=== PATIENT | female | born 1935 | race Hispanic/Latino ===

== ENCOUNTER 2020-02-19 14:23 | Emergency (ER) | payer MEDICARE ==
--- NOTE | 2020-02-19 15:08 | Emergency Department Report ---
Blank Doc - Documentation Documentation: 84-year-old female that presents with multiple pains with headache s/y syncopal episode. This initial assessment/diagnostic orders/clinical plan/treatment(s) is/are subject to change based on patient's health status, clinical progression and re- assessment by fellow clinical providers in the ED. Further treatment and workup at subsequent clinical providers discretion. Patient/guardians urged not to elope from the ED as their condition may be serious if not clinically assessed and managed. Initial orders include: 1- Patient sent to MAIN ED for further evaluation and treatment 2- labs 3- CT scan 4- cervical collar
--- NOTE | 2020-02-19 15:47 | XRay Report ---
CHEST 2 VIEWS INDICATION / CLINICAL INFORMATION: Chest Pain. FINDINGS: SUPPORT DEVICES: None. HEART / MEDIASTINUM: No significant abnormality. LUNGS / PLEURA: No significant pulmonary or pleural abnormality. No pneumothorax. Mild emphysema. ADDITIONAL FINDINGS: No significant additional findings. IMPRESSION: 1. No acute findings. Signer Name: Richard Pal MD Signed: 02/19/2020 3:43 PM Workstation Name: [id number]
--- NOTE | 2020-02-19 16:30 | Cat Scan Report ---
NONENHANCED CT SCAN OF THE HEAD: INDICATION / CLINICAL INFORMATION: 84 years Female; syncope. TECHNIQUE: Routine CT head without contrast. All CT scans at this location are performed using CT dos e reduction for ALARA by means of automated exposure control. COMPARISON: CT scan of the head from 05/22/2018 FINDINGS: BRAIN / INTRACRANIAL CONTENTS: No acute hemorrhage, mass effect, midline shift, hydrocephalus, or ac cooper, large territorial infarct. No chronic infarct or focal atrophy. Periventricular and deep hemisph ernst confluent white matter low attenuation due to chronic small vessel disease CRANIOCERVICAL JUNCTION: No significant abnormality. ORBITS: No significant abnormality of visualized orbits. SINUSES / MASTOIDS: No significant abnormality of the visualized paranasal sinuses or mastoid air lesa ls. ADDITIONAL FINDINGS: None. IMPRESSION: No focal acute parenchymal lesion CT findings remain unchanged since 05/22/2018 Signer Name: Chuy Sun MD Signed: 02/19/2020 4:25 PM Workstation Name: [id number]
[2020-02-19 16:49] LABS: Basophils % (Auto) 0.3 % (0.0-1.8); Eosinophils % (Auto) 0.7 % (0.0-4.3); Hematocrit 38.4 % (30.3-42.9); Hemoglobin 12.8 gm/dl (10.1-14.3); Lymphocytes # (Auto) 1.2 K/mm3 (1.2-5.4); Lymphocytes % (Auto) 22.1 % (13.4-35.0); Mean Corpuscular HGB Conc 33 % (30-34); Mean Corpuscular Volume 99 fl (79-97); Monocytes # (Auto) 0.3 K/mm3 (0.0-0.8); Monocytes % (Auto) 4.8 % (0.0-7.3); Platelet Count 118 K/mm3 (140-440); Red Blood Count 3.88 M/mm3 (3.65-5.03); Red Cell Distribution Width 14.4 % (13.2-15.2)
[2020-02-19 16:59] LABS: INR 0.96 (0.87-1.13); Partial Thromboplastin Time 26.3 Sec. (24.2-36.6)
[2020-02-19 17:09] LABS: Alanine Aminotransferase 12 units/L (7-56); Albumin 4.1 g/dL (3.9-5); BUN/Creatinine Ratio 20; Blood Urea Nitrogen 16 mg/dL (7-17); Calcium 9.9 mg/dL (8.4-10.2); Hemolysis Index 11
--- NOTE | 2020-02-19 17:43 | Cat Scan Report ---
CT cervical spine wo con INDICATION / CLINICAL INFORMATION: 84 years Female; syncope. TECHNIQUE: Axial CT images of the cervical spine were obtained. Sagittal and coronal reformatted images were pr oduced. All CT scans at this location are performed using CT dose reduction for ALARA by means of aut omated exposure control. COMPARISON: The study is compared to the previous CT of 05/22/2018. FINDINGS: POST-SURGICAL CHANGES: None. ALIGNMENT: There is exaggeration of the cervical lordosis with slight anterolisthesis at C6-7 which a ppears to be on a degenerative basis at. VERTEBRAE: There is diffuse osteopenia. However, there is no definitive CT evidence of acute fracture involving the cervical spine. There are continued a multilevel degenerative the disc and endplate ch anges.. INTRAVERTEBRAL DISCS: The left facet and uncovertebral joint hypertrophy at C3-4 result in mild left neural foraminal narrowing. There is marked left foraminal narrowing at C4-5 with encroachment on the left lateral recess at. The spondylosis at C5-6 appears to efface the ventral subarachnoid space at. There appears be moderat e to left neural foraminal narrowing at. There is milder spondylosis at C6-7. There appears be mild t o moderate left foraminal narrowing. PARASPINAL SOFT TISSUES: No prevertebral soft tissue fluid collections are identified. There is a per sistent nodular, heterogeneous lesion along the posterior right lobe of the thyroid gland which appea rs unchanged and remains nonspecific. ADDITIONAL FINDINGS: None. IMPRESSION: 1. There is no definitive CT evidence of acute fracture involving the cervical spine. 2. There are continued multilevel degenerative changes as detailed above. Signer Name: Jesus Da Silva MD Signed: 02/19/2020 5:38 PM Workstation Name: [id number]
[2020-02-19 22:15] VITALS: BP 134/108
== END 2020-02-19 18:00 | disposition left against medical advice (07) ==
LOC: ED 14:23
DX: R51.9 Headache, unspecified (principal); R55 Syncope and collapse; Z53.21 Procedure and treatment not carried out due to patient leaving prior to being seen by health care provider
CPT/HCPCS: 36415; 70450; 71046; 72125; 80053; 84484; 85025; 85610; 85730; 86850; 86900; 86901; 93005

== ENCOUNTER 2021-08-13 08:00 | Inpatient (IN) | payer MEDICARE, OTHER ==
[2021-08-13] MEDS ORDERED: fentaNYL 100 MCG/2 ML INJ IV ONE (08:20)
[2021-08-13] MEDS ORDERED: ONDANSETRON 4 MG/2 ML INJ IV ONE ×2 (08:21→10:44)
--- NOTE | 2021-08-13 08:45 | Emergency Department Report ---
ED Fall HPI - General Chief Complaint: Fall Stated Complaint: RIGHT HIP PAIN S/P FALL Time Seen by Provider: 08/13/21 08:12 Source: patient, EMS Mode of arrival: Stretcher Limitations: No Limitations - History of Present Illness Initial Comments: 86-year-old female with a past medical history of hypertension, CAD/NM, and pacemaker presents to the hospital complaining of right hip pain status post fall. Patient states she has chronic ambulation and balance issues and often needs to use encourage objects and assistive devices for balance during ambul ation. She was walking into her kitchen when she fell landing on her buttock and complaining of right buttock and right hip pain. Pain is rated 9/10 intensity, constant, worse with movement, improved with rest. She denies syncope head injury or worsening in her chronic neck pain. Patient takes aspirin 81 mg daily denies taking other blood thinners - Related Data Previous Rx's Medication Instructions Recorded Last Taken Type HYDROcodone/APAP 5-325 [[place] 1 - 2 each PO Q6HR PRN #10 tablet 05/22/18 Unknown Rx 5/325] Ibuprofen [Motrin 800 MG tab] 800 mg PO Q8HR PRN #20 tablet 05/22/18 Unknown Rx Allergies Allergy/AdvReac Type Severity Reaction Status Date / Time promethazine Allergy Unknown Verified 08/13/21 08:07 ED Review of Systems ROS: Stated complaint: RIGHT HIP PAIN S/P FALL Other details as noted in HPI Comment: All other systems reviewed and negative ED Past Medical Hx - Past Medical History Hx Heart Attack/AMI: Yes - Surgical History Additional Surgical History: Hysterectomy, pacemaker - Social History Smoking Status: Current Some Day Smoker Substance Use Type: Alcohol (occasional) - Medications Home Medications: Home Medications Medication Instructions Recorded Confirmed Last Taken Type HYDROcodone/APAP 5-325 [[place] 1 - 2 each PO Q6HR PRN #10 tablet 05/22/18 Unknown Rx 5/325] Ibuprofen [Motrin 800 MG tab] 800 mg PO Q8HR PRN #20 tablet 05/22/18 Unknown Rx ED Physical Exam - General Limitations: Physical Limitation - Other Other exam information: General: No acute distress Head: Atraumatic Eyes: normal appearance ENT: Moist mucous membranes Neck: Normal appearance, no midline tenderness Chest: Clear to auscultation bilaterally CV: Regular rate and rhythm Abdomen: Soft, normal bowel sounds, nontender, nondistended, no rebound or guarding Back: No midline back tenderness but right lower back/gluteal tenderness Extremity: Patient does have some passive and active movement of the right hip including extension and internal and external rotation. Pain when his extension is greater than 20 to 30 degrees. Patient have a right posterior hip/pelvis pain with hip extension. 2+ DP pulse. Neuro: Alert O x 3, no facial asymmetry, speech clear, no gross motor sensory deficit Psych: Appropriate behavior Skin: No rash ED Course Vital Signs 08/13/21 08/13/21 08/13/21 08:04 08:24 08:30 Pulse Rate 70 65 78 Respiratory 18 11 L Rate Blood Pressure 179/78 Blood Pressure 160/80 [Left] O2 Sat by Pulse 98 95 Oximetry 08/13/21 08/13/21 08/13/21 09:00 09:16 09:25 Pulse Rate 67 69 Respiratory 13 11 L Rate Blood Pressure 179/78 145/69 Blood Pressure [Left] O2 Sat by Pulse 99 99 Oximetry 08/13/21 08/13/21 08/13/21 09:30 09:46 10:00 Pulse Rate 67 72 71 Respiratory 9 L 21 12 Rate Blood Pressure 143/69 143/69 143/64 Blood Pressure [Left] O2 Sat by Pulse 99 98 100 Oximetry 08/13/21 08/13/21 08/13/21 10:15 10:40 10:46 Pulse Rate 71 71 67 Respiratory 11 L 11 L 9 L Rate Blood Pressure 143/64 143/64 143/64 Blood Pressure [Left] O2 Sat by Pulse 100 90 97 Oximetry 08/13/21 08/13/21 08/13/21 11:00 11:16 11:30 Pulse Rate 67 67 68 Respiratory 16 14 10 L Rate Blood Pressure 130/59 130/59 147/67 Blood Pressure [Left] O2 Sat by Pulse 100 100 97 Oximetry 08/13/21 08/13/21 11:46 12:00 Pulse Rate 67 67 Respiratory 15 15 Rate Blood Pressure 147/67 134/53 Blood Pressure [Left] O2 Sat by Pulse 100 100 Oximetry - Consultations Consultation #1: 08/13/21 12:[address] Rocha orthopedic surgeon on-call. Nonsurgical fractures. Admission required for pain management and possible rehab ED Medical Decision Making - Radiology Data Radiology results: report reviewed the following reports were reviewed xray left hip xr l spine ct pelvis ct l spine - Medical Decision Making 86-year-old female presents to the hospital with fall. No head injury or LOC reported. Patient denies being on anticoagulants. X-rays initially unremarkable however, patient had continued and intractable pain. CTs revealed sacral and pubic ramus fractures. Case discussed with orthopedic surgeon. Patient is not a surgical candidate however will need additional support and rehab arrangements Critical Care Time: No Critical care attestation.: If time is entered above; I have spent that time in minutes in the direct care of this critically ill patient, excluding procedure time. ED Disposition Clinical Impression: Fall, Sacral fracture, Fracture of right pubis Disposition: ADMITTED INPATIENT Is pt being admited?: Yes Condition: Stable Time of Disposition: 12:33
--- NOTE | 2021-08-13 09:25 | XRay Report ---
EXAMINATION: Right hip radiograph, 2 views, 08/13/2021 CLINICAL INFORMATION / INDICATION: Right hip pain after fall COMPARISON: No relevant prior studies available for comparison FINDINGS: There is no evidence of acute fracture or dislocation of the right hip. There are mild dege nerative changes. Single view of the pelvis demonstrates no evidence of displaced fracture. IMPRESSION: 1. No radiographic evidence of acute right hip fracture. Signer Name: Shruthi Soto MD Signed: 08/13/2021 9:20 AM Workstation Name: [email or web address]
--- NOTE | 2021-08-13 09:27 | XRay Report ---
EXAMINATION: Lumbar spine radiograph series, 3 views, 08/13/2021 CLINICAL INFORMATION / INDICATION: Back pain after fall COMPARISON: No relevant prior study is available for comparison. FINDINGS: There is normal alignment of the lumbar vertebral bodies. Vertebral body height is well nohemy ntained. Mild multilevel degenerative changes are noted. IMPRESSION: Mild bony degenerative changes of the lumbar spine. Signer Name: Shruthi Soto MD Signed: 08/13/2021 9:22 AM Workstation Name: [email or web address]
[2021-08-13] MEDS ORDERED: MORPHINE 4 MG/1 ML INJ IV ONE ×2 (10:44→12:28)
[2021-08-13] MEDS ORDERED: ONDANSETRON 4 MG/2 ML INJ ONE (10:46)
[2021-08-13] MEDS ORDERED: MORPHINE 4 MG/1 ML INJ ONE (10:46)
--- NOTE | 2021-08-13 11:09 | Cat Scan Report ---
CT PELVIS WITHOUT CONTRAST, 08/13/2021 INDICATION: Trauma. Fall. Right hip pain. TECHNICAL: Multiple axial CT images of the pelvis were acquired without intravenous contrast. Sagitt al and coronal reformats were obtained. All CTs at this facility utilize dose reduction techniques i ncluding automated exposure control, iterative reconstruction and weight based dosing when appropriat e to reduce patient radiation dose to as low as reasonable achievable. COMPARISON: Right hip radiograph, 08/13/2021 FINDINGS: PELVIS: Limited visualization of intrapelvic contents demonstrates no evidence of acute abnormality. The urinary bladder appears normal. There is no free pelvic fluid or adenopathy. BONES AND SOFT TISSUES: Evaluation of bony structures demonstrates a nondisplaced fracture of the rig ht inferior pubic ramus. There is no evidence of acute right hip fracture. Bony structures appear sub jectively demineralized. Evaluation of soft tissue structures demonstrates no acute soft tissue abnor mality. IMPRESSION: 1. Nondisplaced fracture of the right inferior pubic ramus Signer Name: Shruthi Soto MD Signed: 08/13/2021 11:04 AM Workstation Name: [id number]
--- NOTE | 2021-08-13 11:12 | Cat Scan Report ---
. CT lumbar spine wo con INDICATION / CLINICAL INFORMATION: 86 years Female; right hip pain. TECHNIQUE: Axial CT images of the lumbar spine were obtained. Sagittal and coronal reformatted images were prod uced. All CT scans at this location are performed using CT dose reduction for ALARA by means of autom ated exposure control. COMPARISON: None available. FINDINGS: POST-SURGICAL CHANGES: None. ALIGNMENT: No significant abnormality. VERTEBRAE: Vertebral bodies are grossly normal in height throughout. Diffuse osteoporosis suggested. Buckle fracture is seen along the anterior margin of the S2 sacral segment, near the S1-2 level. In a ddition, there is a sacral insufficiency fracture seen, as evidenced by comminution along the anterio r wall of the left sacral alar region. [id number] ANALYSIS: L1-2: Mild disc bulge. Broad-based foraminal/extra foraminal disc protrusion on the left without sig nificant sequela. L2-3: Mild disc bulge and facet/ligamentum flavum hypertrophy. Mild canal narrowing noted. L3-4: Mild to moderate disc bulge and [id number] facet/ligamentum flavum hypertrophy. Moderate canal and mild subarticular zone narrowing suggested. Mild foraminal narrowing bilaterally. L4-5: Mild to moderate disc bulge and moderate to marked facet/ligamentum flavum hypertrophy. Modera te to high-grade canal and subarticular zone narrowing seen, which could affect L5 nerves. Mild to mo derate foraminal narrowing. L5-S1: Small, broad-based right paracentral disc protrusion. Mild to moderate facet hypertrophy. Mil d to moderate foraminal narrowing. PARASPINAL SOFT TISSUES: Paraspinous muscular atrophy seen in the lumbosacral region. ADDITIONAL FINDINGS: Scarring type changes versus platelike atelectasis seen in the lungs. Pacemaker/defibrillator wires noted. 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 IMPRESSION: 1. Sacral fractures, as described above. 2. No signs of discitis or epidural fluid collection. 3. Degenerative changes as described above, most marked findings at L4-5. Signer Name: Khoa Damian MD, III Signed: 08/13/2021 11:07 AM Workstation Name: [id number]
--- NOTE | 2021-08-13 12:39 | History and Physical Report ---
History of Present Illness Chief complaint: I fell and hurt my hip History of present illness: 86 YO Female with Vascular Dementia, Cerebral Atherosclerosis, HTN, CAD, [place], Ischemic Cardiomyopathy S/P Pacemaker Placement, Nicotine Dependence presents to ED for evaluation. Patient reports "I tripped and fell". Patient states that she tripped and fell while ambulating to her kitchen and subsequently fell from a standing position landing on her buttock. Patient states that she experienced immediate onset of pain in her buttock and hip. Patient states that pain is 9/10, constant, worsened with movement, improved with nonmovement. EMS was notified and upon arrival the patient was found to be in distress and subsequent transported to [facility] for further care and evaluation of the aforementioned symptoms. The patient was seen and evaluated in the emergency department. All lab and imaging studies reviewed. Patient found to have sacral fractures, degenerative joint disease, debility and inability to stand and bear weight left lower extremity as well as inability to ambulate due to pain. Orthopedic surgery service consulted. Physical therapy consulted. Case management consulted for assistance with discharge planning and placement. Patient denies fever, chills, chest pain, palpitation, productive cough, skin rash, recent contact, known exposure to COVID-19. No prior admission for review. All medica tion listed at time of admission has been reconciled. Advanced care planning conducted in ED. Past History Past Medical History: acute [place], CAD, hypertension, other (See HPI) Past Surgical History: hysterectomy, Other (Pacemaker placement) Social history: , smoking. denies: alcohol abuse, prescription drug abuse Family history: hypertension Medications and Allergies Allergies Allergy/AdvReac Type Severity Reaction Status Date / Time promethazine Allergy Unknown Verified 08/13/21 08:07 Home Medications Medication Instructions Recorded Confirmed Last Taken Type HYDROcodone/APAP 5-325 [[place] 1 - 2 each PO Q6HR PRN #10 tablet 05/22/18 Unknown Rx 5/325] Ibuprofen [Motrin 800 MG tab] 800 mg PO Q8HR PRN #20 tablet 05/22/18 Unknown Rx Review of Systems Constitutional: no weight loss, no weight gain, no fever, no chills Ears, nose, mouth and throat: no ear pain, no tinnitis, no nose pain, no nasal congestion, no nasal discharge Breasts: no change in shape, no swelling, no mass Cardiovascular: no chest pain, no orthopnea, no palpitations, no edema, no sync ope Respiratory: no cough, no hemoptysis, no shortness of breath Gastrointestinal: no abdominal pain, no nausea, no change in bowel habits Genitourinary Female: other (Hip pain), no urinary frequency, no stress incontinence, no urge incontinence, no mixed incontinence Rectal: no pain, no incontinence, no bleeding Musculoskeletal: no neck stiffness, no shooting arm pain, no arm numbness/tingling, no shooting leg pain, no leg numbness/tingling Integumentary: no rash, no pruritis, no sores Neurological: no head injury, no transient paralysis, no weakness, no parathesias Psychiatric: no anxiety, no memory loss, no sleep disturbances, no change in appetite, no change in libido Endocrine: no cold intolerance, no heat intolerance, no polyphagia, no excessive thirst, no weight change Hematologic/Lymphatic: no easy bruising, no easy bleeding Allergic/Immunologic: no urticaria, no wheezing Exam - Constitutional Vitals: Temp Pulse Resp BP Pulse Ox 67 15 134/53 100 08/13/21 12:00 08/13/21 12:00 08/13/21 12:00 08/13/21 12:00 General appearance: Present: mild distress - EENT Eyes: Present: PERRL ENT: hearing intact, clear oral mucosa - Neck Neck: Present: supple, normal ROM - Respiratory Respiratory effort: normal Respiratory: bilateral: CTA - Cardiovascular Heart Sounds: Present: S1 & S2. Absent: rub, click - Extremities Extremities: pulses symmetrical, No edema Peripheral Pulses: within normal limits - Abdominal General gastrointestinal: Present: soft, non-tender, non-distended, normal bowel sounds Female genitourinary: Present: normal - Integumentary Integumentary: Present: clear, warm, dry - Musculoskeletal Musculoskeletal: gait normal, strength equal bilaterally - Psychiatric Psychiatric: appropriate mood/affect, intact judgment & insight - Neurologic Neurologic: CNII-XII intact, moves all extremities Results - Labs CBC & Chem 7: 08/13/21 12:48 08/13/21 12:48 Assessment and Plan - Patient Problems (1) Sacral fracture Current Visit: Yes Status: Acute Qualifiers: Encounter type: initial encounter Plan to address problem: Orthopedic surgery service consulted, pain control, supportive care, physical therapy consulted. Case management team consulted for discharge planning and assistance with placement. (2) Vascular dementia Current Visit: Yes Status: Acute Qualifiers: Dementia behavioral disturbance: without behavioral disturbance Qualified Code(s): F01.50 - Vascular dementia without behavioral disturbance Plan to address problem: Verbal prompting, verbal redirection, benzodiazepine therapy as clinically indicated. (3) Cerebral atherosclerosis Current Visit: Yes Status: Acute Plan to address problem: Risk factor reduction therapy, antiplatelet therapy as clinically indicated. (4) Hypertension Current Visit: Yes Status: Acute Qualifiers: Hypertension type: primary hypertension Qualified Code(s): I10 - Essential (primary) hypertension Plan to address problem: Monitor blood pressure every shift, continue medical management (5) Coronary artery disease Current Visit: Yes Status: Acute Plan to address problem: Risk factor reduction therapy, supportive care. (6) Debility Current Visit: Yes Status: Acute Plan to address problem: Physical therapy consulted, supportive care. (7) Fracture of right pubis Current Visit: Yes Status: Acute Plan to address problem: Supportive care, pain control, orthopedic surgery team consulted. Further care and evaluation as per orthopedic surgery team. (8) Nicotine dependence Current Visit: Yes Status: Acute Qualifiers: Nicotine product type: cigarettes Substance use status: in withdrawal Qualified Code(s): F17.213 - Nicotine dependence, cigarettes, with withdrawal Plan to address problem: Smoking cessation counseling, supportive care, behavior change counseling, +15 minutes. (9) DVT prophylaxis Current Visit: Yes Status: Acute Plan to address problem: SCD bilateral lower extremities while in bed (10) Advance care planning Current Visit: Yes Status: Acute Plan to address problem: Disease education done, care plan discussed, diagnoses discussed, prognosis discussed, patient is full code. Patient acknowledges understanding and agreement with care plan, +30 minutes.
--- NOTE | 2021-08-13 13:56 | Consultation ---
History of Present Illness - HPI History of present illness: ORTHOPAEDIC CONSULT Assessment: 1. Inferior pubic ramus fracture , right hemipelvis 2. No evidence of hip or femur fracture; 3. Rule out sacral fractures versus DJD; questionable facet fracture L5-S1 Recommendation: 1. She is being admitted for other medical issues including CVA/stroke. 2. Physical therapy modalities for the pelvic and sacral injuries with gait training and ambulating with walker weight-bear as tolerated; she has no fractures that require surgical intervention and pain management and mobilization will be the barr to recovery. 3. Follow-up in orthopedic office 2 weeks; 4. Modalities such as ice packs and ample bed and chair exercises will also be ordered with physical therapy. Discussion: This is a 86-year-old female who was seen in the emergency room for a fall that she sustained at home. Suitable syncopal episode versus simple misstep being evaluated. She is in no acute distress. She is being admitted by the hospitalist. She was examined in the emergency room today. He has appropriate pain over the right hemipelvis and in the low back below the waistline. There is no instability and she is able to do straight leg raises with both legs with assistance. There is diffuse lumbosacral back pain with no neurologic compromise. SHe has a positive history of hypertension, coronary artery disease and CT, with current pacemaker. Medications and Allergies Allergies Allergy/AdvReac Type Severity Reaction Status Date / Time promethazine Allergy Unknown Verified 08/13/21 08:07 Home Medications Medication Instructions Recorded Confirmed Last Taken Type HYDROcodone/APAP 5-325 [[place] 1 - 2 each PO Q6HR PRN #10 tablet 05/22/18 Unknown Rx 5/325] Ibuprofen [Motrin 800 MG tab] 800 mg PO Q8HR PRN #20 tablet 05/22/18 Unknown Rx
[2021-08-13 14:30] LABS: BUN/Creatinine Ratio 21; Blood Urea Nitrogen 17 mg/dL (7-17); Hemolysis Index 15
[2021-08-13 14:32] LABS: Basophils # (Auto) 0.1 K/mm3 (0.0-0.1); Basophils % (Auto) 1.1 % (0.0-1.8); Eosinophils % (Auto) 0.5 % (0.0-4.3); Hematocrit 42.1 % (30.3-42.9); Hemoglobin 13.5 gm/dl (10.1-14.3); Lymphocytes # (Auto) 0.8 K/mm3 (1.2-5.4); Lymphocytes % (Auto) 10.8 % (13.4-35.0); Mean Corpuscular HGB Conc 32 % (30-34); Mean Corpuscular Volume 99 fl (79-97); Monocytes # (Auto) 0.3 K/mm3 (0.0-0.8); Monocytes % (Auto) 4.1 % (0.0-7.3); Red Blood Count 4.26 M/mm3 (3.65-5.03); Red Cell Distribution Width 13.5 % (13.2-15.2)
[2021-08-13 14:36] LABS: Platelet Count 92 K/mm3 (140-440)
[2021-08-13] MEDS ORDERED: ONDANSETRON 4 MG/2 ML INJ IV PRN (16:31)
[2021-08-13] MEDS ORDERED: ALBUTEROL 2.5 MG/3 ML NEBU IH PRN (16:31)
[2021-08-13] MEDS ORDERED: oxyCODONE /ACETAMINOPHEN 5-325MG TAB PO PRN (16:31)
[2021-08-13] MEDS ORDERED: ACETAMINOPHEN 325 MG TAB PO PRN (16:31)
[2021-08-13] MEDS: SODIUM CHLORIDE 0.9% 1000 ML 1,000 ML IV SCH (21:01)
[2021-08-14 04:53] LABS: Basophils % (Auto) 0.2 % (0.0-1.8); Eosinophils # (Auto) 0.2 K/mm3 (0.0-0.4); Eosinophils % (Auto) 2.5 % (0.0-4.3); Hematocrit 35.2 % (30.3-42.9); Hemoglobin 11.9 gm/dl (10.1-14.3); Lymphocytes # (Auto) 1.3 K/mm3 (1.2-5.4); Lymphocytes % (Auto) 19.6 % (13.4-35.0); Mean Corpuscular HGB Conc 34 % (30-34); Mean Corpuscular Volume 97 fl (79-97); Monocytes # (Auto) 0.3 K/mm3 (0.0-0.8); Monocytes % (Auto) 4.6 % (0.0-7.3); Red Blood Count 3.63 M/mm3 (3.65-5.03); Red Cell Distribution Width 13.8 % (13.2-15.2)
[2021-08-14 05:02] LABS: Calcium 9.3 mg/dL (8.4-10.2)
[2021-08-14 05:11] LABS: Platelet Count 73 K/mm3 (140-440)
[2021-08-14] MEDS: HYDROmorphone 1 MG/1 ML INJ IV PRN ×3 (06:01→18:10)
--- NOTE | 2021-08-14 13:06 | Progress Note ---
Assessment and Plan #1 ground-level fall -Patient with current inferior pubic rami fracture. -We will require physical therapy, gait training and ambulatory walker. -No surgical intervention required at this time -Pain management -Follow-up with orthopedics 2 weeks. -Case management consult may require shelter facility. -CT scan for syncope work-up. Follow electrolytes #2 coronary artery disease -Patient maintains chest pain-free. -Risk factor stratification. -Aspirin beta-flex. -Cardiology consult to complete syncope work-up. #3 vascular dementia -Patient maintains fair cognition. Alert oriented able to make needs known. -CT scan head to rule out syncope or any other untoward event. #4 hypertension -At present has optimal control continue present management. #5 pubic rami fracture -See noted above physical therapY, possible skilled nurse facility -Continue physical therapy, no surgical intervention required. Subjective Date of service: 08/14/21 Principal diagnosis: Pelvic fracture ground level fall Interval history: Patient 86-year-old female with history of hypertension, coronary artery disease, myocardial infarction and vascular dementia. Patient prevents with a ground-level fall. Unable to tell whether she tripped over object or whether the patient got dizzy and blacked out. Work-up in ED patient found to have significant pelvic fractures but nothing requiring surgical intervention. This required rehabilitation. Patient understands this. Which will initiate syncopal work-up. Patient denies any dizziness any previous history of syncope. Patient does have history of coronary disease. No chest pain no shortness of breath current enzymes unremarkable. Patient undergoing physical therapy right now and is doing fairly well. Objective - Constitutional Vitals: Vital Signs - 12hr 08/14/21 08/14/21 08/14/21 04:43 04:48 10:00 Temperature 99.4 F Pulse Rate 72 Respiratory 18 Rate Blood Pressure 127/59 O2 Sat by Pulse 83 L 96 91 Oximetry General appearance: Present: no acute distress, well-nourished - EENT Eyes: PERRL, EOM intact ENT: hearing intact, clear oral mucosa Ears: bilateral: normal - Neck Neck: supple, normal ROM - Respiratory Respiratory effort: normal Respiratory: bilateral: CTA - Breasts Breasts: normal - Cardiovascular Rhythm: regular Heart Sounds: Present: S1 & S2. Absent: gallop, rub Extremities: pulses intact, No edema, normal color, Full ROM Extremity abnormal: other (Pain upon movement of extremities with exercise especially in the pelvic area) - Gastrointestinal General gastrointestinal: Present: soft, non-tender, non-distended, normal bowel sounds - Genitourinary Female genitourinary: normal - Integumentary Integumentary: clear, warm, dry - Musculoskeletal Musculoskeletal: 1, strength equal bilaterally - Neurologic Neurologic: moves all extremities - Psychiatric Psychiatric: memory intact, appropriate mood/affect, intact judgment & insight - Labs CBC & Chem 7: 08/14/21 04:14 08/14/21 04:14 Labs: Abnormal lab results 08/13/21 08/14/21 08/14/21 Range/Units 12:48 04:14 04:14 RBC 3.63 L (3.65-5.03) M/mm3 MCV 99 H (79-97) fl MCH 33 H (28-32) pg Plt Count 92 L 73 L (140-440) K/mm3 Lymph % (Auto) 10.8 L (13.4-35.0) % Lymph # (Auto) 0.8 L (1.2-5.4) K/mm3 Seg Neutrophils % 83.5 H 73.1 H (40.0-70.0) % BUN 22 H (7-17) mg/dL Glucose 117 H (65-100) mg/dL
--- NOTE | 2021-08-14 14:20 | Cat Scan Report ---
CT head/brain wo con INDICATION / CLINICAL INFORMATION: 86 years Female; SYNCOPE. TECHNIQUE: Routine CT head without contrast. All CT scans at this location are performed using CT dos e reduction for ALARA by means of automated exposure control. COMPARISON: 02/19/2020 FINDINGS: BRAIN / INTRACRANIAL CONTENTS: No acute hemorrhage, mass effect, midline shift, hydrocephalus, or acu te, large territorial infarct. Surprisingly little atrophy present, given the patient's age. There are moderate to extensive, confluent areas of decreased attenuation in the white matter of the cerebral hemispheres, as well as the gangliocapsular regions. These are nonspecific findings and may be related to microangiopathy (hypertension, diabetes, atherosclerosis), given the patient's age. Rhys lou disease suspected. CRANIOCERVICAL JUNCTION: No significant abnormality. ORBITS: No significant abnormality of visualized orbits. SINUSES / MASTOIDS: Visualized paranasal sinuses and mastoid air cells are essentially clear. ADDITIONAL FINDINGS: None. IMPRESSION: 1. No focal mass, hemorrhage, hydrocephalus, or acute, large territorial infarct. Follow-up with diff usion imaging by MRI, as clinically warranted. Signer Name: Khoa Damian MD, III Signed: 08/14/2021 2:16 PM Workstation Name: [email or web address]
[2021-08-15] MEDS: HYDROmorphone 1 MG/1 ML INJ IV PRN ×2 (02:52→10:49)
[2021-08-15 03:20] LABS: Bilirubin,Urine NEG (Negative); Blood,Urine SM (Negative); Color,Urine Yellow (Yellow); Mucus,Urine FEW /HPF; Protein,Urine <15 mg/dL mg/dL (Negative); Urobilinogen,Urine < 2.0 mg/dL (<2.0)
[2021-08-15 03:28] LABS: RBC,Urine < 1.0 /HPF (0.0-6.0); WBC,Urine < 1.0 /HPF (0.0-6.0)
[2021-08-15] MEDS: SODIUM CHLORIDE 0.9% 1000 ML 1,000 ML IV SCH (09:13)
--- NOTE | 2021-08-15 09:52 | Progress Note ---
Assessment and Plan #1 ground-level fall -Patient with current inferior pubic rami fracture. -We will require physical therapy, gait training and ambulatory walker. -No surgical intervention required at this time -Pain management -Follow-up with orthopedics 2 weeks. -Case management consult may require jail facility. -CT scan for syncope work-up. Follow electrolytes #2 coronary artery disease -Patient maintains chest pain-free. -Risk factor stratification. -Aspirin beta-flex. -Cardiology consult to complete syncope work-up. Very low threshold for acute cardiac event at this time. May be done on outpatient #3 vascular dementia -Patient maintains fair cognition. Alert oriented able to make needs known. -CT scan head to rule out syncope or any other untoward event. #4 hypertension -At present has optimal control continue present management. #5 pubic rami fracture -See noted above physical therapY, possible skilled nurse facility -Continue physical therapy, no surgical intervention required. Subjective Date of service: 08/15/21 Principal diagnosis: Pelvic fracture ground level fall Interval history: Patient 86-year-old female with history of hypertension, coronary artery disease, myocardial infarction and vascular dementia. Patient prevents with a ground-level fall. Unable to tell whether she tripped over object or whether the patient got dizzy and blacked out. Work-up in ED patient found to have significant pelvic fractures but nothing requiring surgical intervention. This required rehabilitation. Patient understands this. Which will initiate syncopal work-up. Patient denies any dizziness any previous history of syncope. Patient does have history of coronary disease. No chest pain no shortness of breath current enzymes unremarkable. Patient undergoing physical therapy right now and is doing fairly well. 08/15/2021. Patient is alert. Answers questions appropriately. Able to make needs known. Denies chest pain denies shortness of breath. Still has hip pain secondary to pelvic fracture however controlled with pain medications and immobilization. Objective - Constitutional Vitals: Vital Signs - 12hr 08/14/21 08/15/21 08/15/21 22:00 01:06 04:47 Temperature 98.4 F Pulse Rate 72 Respiratory 18 Rate Blood Pressure 131/62 O2 Sat by Pulse 91 96 94 Oximetry General appearance: Present: no acute distress, well-nourished - EENT Eyes: PERRL, EOM intact ENT: hearing intact, clear oral mucosa Ears: bilateral: normal - Neck Neck: supple, normal ROM - Respiratory Respiratory effort: normal Respiratory: bilateral: CTA - Breasts Breasts: normal - Cardiovascular Rhythm: regular Heart Sounds: Present: S1 & S2. Absent: gallop, rub Extremities: pulses intact, No edema, normal color, Full ROM Extremity abnormal: other (Limited range of motion pelvis secondary to pain. Can push herself up in bed.) - Gastrointestinal General gastrointestinal: Present: soft, non-tender, non-distended, normal bowel sounds - Genitourinary Female genitourinary: normal - Integumentary Integumentary: clear, warm, dry - Musculoskeletal Musculoskeletal: 1, strength equal bilaterally - Neurologic Neurologic: moves all extremities - Psychiatric Psychiatric: memory intact, appropriate mood/affect, intact judgment & insight - Labs CBC & Chem 7: 08/14/21 04:14 08/14/21 04:14
[2021-08-16] MEDS: SODIUM CHLORIDE 0.9% 1000 ML 1,000 ML IV SCH (07:27)
--- NOTE | 2021-08-16 10:27 | Progress Note ---
Assessment and Plan Assessment and plan: --s/p Fall Fall precautions, PT OT rehab Supportive care --Sacral fracture Current Visit: Yes Status: Acute Orthopedic surgery service evaluated the patient, no indication for any surgical procedure, Recommend pain management , physical therapy , ambulate as tolerated and supportive care . DC planning possible placement subacute rehab versus SNF, Per case management -- Vascular dementia Current Visit: Yes Status: Acute Verbal prompting , supportive care --Cerebral atherosclerosis Current Visit: Yes Status: Acute Risk factor reduction therapy, antiplatelet therapy as clinically indicated. --Hypertension Current Visit: Yes Status: Acute Monitor blood pressure every shift, continue medical management --History of coronary artery disease Current Visit: Yes Status: Acute Risk factor reduction therapy, supportive care. Continue current medications --General debility Current Visit: Yes Status: Acute Physical therapy , follow evaluation recommendation PT OT, subacute versus SNF placement when stable --Fracture of right pubis Current Visit: Yes Status: Acute Supportive care, pain control, orthopedic surgery team consulted. Further care and evaluation as per orthopedic surgery team. --Nicotine dependence Current Visit: Yes Status: Acute Smoking cessation counseling, supportive care, Nicotine patch as needed, behavior change counseling, +15 minutes. -- DVT prophylaxis Current Visit: Yes Status: Acute SCD bilateral lower extremities while in bed --Advance care planning Current Visit: Yes Status: Acute Disease education done, care plan discussed, diagnoses discussed, prognosis discussed, patient is full code. Patient acknowledges understanding and agreement with care plan, +30 minutes. Follow Ortho evaluation recommendations Follow PT evaluation recommendations Follow clinically DC planning per case management Placement to SNF versus subacute rehab versus home with home health When medically stable Closely monitor the patient and adjust the management as needed Plan of care reviewed with the patient and her nurse As well as the case management History Interval history: I have seen and examined the patient at the bedside today Patient's chart and medications reviewed Patient complains of bad back pain nausea vomiting pain medications In mild distress PT at the bedside to evaluate and manage Vital signs noted Hospitalist Physical - Constitutional Vitals: Temp Pulse Resp BP Pulse Ox 98.0 F 73 20 157/63 93 08/16/21 04:42 08/16/21 04:42 08/16/21 04:42 08/16/21 04:42 08/16/21 09:43 General appearance: Present: mild distress (Due to pain), well-nourished, other (Elderly and frail) - EENT Eyes: Present: PERRL, EOM intact - Neck Neck: Present: supple, normal ROM - Respiratory Respiratory effort: normal Respiratory: bilateral: diminished, negative: rales, rhonchi, wheezing - Cardiovascular Rhythm: regular Heart Sounds: Present: S1 & S2 - Extremities Extremities: no ischemia, No edema, abnormal (Patient has multiple areas of tenderness and painful movements due to pelvic fracture) - Abdominal General gastrointestinal: soft, non-tender, non-distended, normal bowel sounds - Integumentary Integumentary: Present: clear, warm - Psychiatric Psychiatric: appropriate mood/affect, cooperative - Neurologic Neurologic: moves all extremities Results - Labs CBC & Chem 7: 08/14/21 04:14 08/14/21 04:14 Labs: Laboratory Last Values WBC 6.5 K/mm3 (4.5-11.0) 08/14/21 04:14 RBC 3.63 M/mm3 (3.65-5.03) L 08/14/21 04:14 Hgb 11.9 gm/dl (10.1-14.3) 08/14/21 04:14 Hct 35.2 % (30.3-42.9) D 08/14/21 04:14 MCV 97 fl (79-97) 08/14/21 04:14 MCH 33 pg (28-32) H 08/14/21 04:14 MCHC 34 % (30-34) 08/14/21 04:14 RDW 13.8 % (13.2-15.2) 08/14/21 04:14 Plt Count 73 K/mm3 (140-440) L 08/14/21 04:14 Lymph % (Auto) 19.6 % (13.4-35.0) 08/14/21 04:14 [place] % (Auto) 4.6 % (0.0-7.3) 08/14/21 04:14 Eos % (Auto) 2.5 % (0.0-4.3) 08/14/21 04:14 Baso % (Auto) 0.2 % (0.0-1.8) 08/14/21 04:14 Lymph # (Auto) 1.3 K/mm3 (1.2-5.4) 08/14/21 04:14 [place] # (Auto) 0.3 K/mm3 (0.0-0.8) 08/14/21 04:14 Eos # (Auto) 0.2 K/mm3 (0.0-0.4) 08/14/21 04:14 Baso # (Auto) 0.0 K/mm3 (0.0-0.1) 08/14/21 04:14 Seg Neutrophils % 73.1 % (40.0-70.0) H 08/14/21 04:14 Seg Neutrophils # 4.7 K/mm3 (1.8-7.7) 08/14/21 04:14 Sodium 139 mmol/L (137-145) 08/14/21 04:14 Potassium 4.4 mmol/L (3.6-5.0) 08/14/21 04:14 Chloride 104.0 mmol/L (98-107) 08/14/21 04:14 Carbon Dioxide 25 mmol/L (22-30) 08/14/21 04:14 Anion Gap 14 mmol/L 08/14/21 04:14 BUN 22 mg/dL (7-17) H 08/14/21 04:14 Creatinine 0.9 mg/dL (0.6-1.2) 08/14/21 04:14 Estimated GFR 59 ml/min 08/14/21 04:14 BUN/Creatinine Ratio 24 % 08/14/21 04:14 Glucose 117 mg/dL (65-100) H 08/14/21 04:14 Calcium 9.3 mg/dL (8.4-10.2) 08/14/21 04:14 Urine Color Yellow (Yellow) 08/15/21 02:45 Urine Turbidity Clear (Clear) 08/15/21 02:45 Urine pH 5.0 (5.0-7.0) 08/15/21 02:45 Ur Specific [place] 1.019 (1.003-1.030) 08/15/21 02:45 Urine Protein <15 mg/dl mg/dL (Negative) 08/15/21 02:45 Urine Glucose (UA) Neg mg/dL (Negative) 08/15/21 02:45 Urine Ketones Neg mg/dL (Negative) 08/15/21 02:45 Urine Blood Sm (Negative) 08/15/21 02:45 Urine Nitrite Neg (Negative) 08/15/21 02:45 Urine Bilirubin Neg (Negative) 08/15/21 02:45 Urine Urobilinogen < 2.0 mg/dL (<2.0) 08/15/21 02:45 Ur Leukocyte Esterase Neg (Negative) 08/15/21 02:45 Urine WBC (Auto) < 1.0 /HPF (0.0-6.0) 08/15/21 02:45 Urine RBC (Auto) < 1.0 /HPF (0.0-6.0) 08/15/21 02:45 U Epithel Cells (Auto) 2.0 /HPF (0-13.0) 08/15/21 02:45 Urine Mucus Few /HPF 08/15/21 02:45 Gavin/IV: Voiding Method External Female Catheter Active Medications - Current Medications Current Medications: Generic Name Dose Route Start Last Admin Trade Name Freq PRN Reason Stop Dose Admin Acetaminophen 650 mg 08/13/21 16:31 Acetaminophen 325 Mg Tab PO Q4H PRN Pain MILD(1-3)/Fever >100.5/PERALTA Albuterol 2.5 mg 08/13/21 16:31 Albuterol 2.5 Mg/3 Ml Nebu IH Q4HRT PRN Shortness Of Breath Hydromorphone HCl 0.5 mg 08/13/21 16:31 08/15/21 10:49 Hydromorphone 1 Mg/1 Ml Inj IV 0.5 mg Q3H PRN Administration Pain , Severe (7-10) Sodium Chloride 1,000 mls @ 42 mls/hr 08/13/21 16:45 08/16/21 07:27 Nacl 0.9% 1000 Ml IV 42 mls/hr DIRECT PARMINDER Administration Ondansetron HCl 4 mg 08/13/21 16:31 Ondansetron 4 Mg/2 Ml Inj IV Q8H PRN Nausea And Vomiting Oxycodone/Acetaminophen 1 tab 08/13/21 16:31 Oxycodone /Acetaminophen 5-325mg Tab PO Q6H PRN Pain, Moderate (4-6) Sodium Chloride 10 ml 08/13/21 22:00 08/16/21 10:04 Sodium Chloride 0.9% 10 Ml Flush Syringe IV 10 ml BID PARMINDER Administration Sodium Chloride 10 ml 08/13/21 16:31 Sodium Chloride 0.9% 10 Ml Flush Syringe IV PRN PRN LINE FLUSH
--- NOTE | 2021-08-16 10:38 | Consultation ---
History of Present Illness Consult date: 08/16/21 Consult reason: syncope History of present illness: The patient is an 86-year-old woman with a history of pacemaker implant, who follows up with Dr. Neil and Dr. Rivers. She also reports difficulty mobility, for which she uses a walker. She presented to the hospital at this time following a fall at home. She states that she left her bedroom and was walking across the living room without her walker and apparently lost her footing and fell backwards. She reports no syncope, just stating that she may have lost consciousness for a second after she hit the floor. There was no lightheadedness, no palpitations, no chest pain. In the emergency room, she underwent series of x-rays that have revealed fractures in her sacral bones, for which she is being managed conservatively from an orthopedic standpoint. Cardiology consultation is requested for assessment of possible syncope, but patient denies any loss of consciousness except for a momentary loss on impact with the floor. ECG on this presentation shows an atrial paced rhythm, viejas QRS, no acute ST or T wave changes. Past History Past Medical History: hypertension Past Surgical History: hysterectomy, Other (Pacemaker implant) Social history: , smoking. denies: alcohol abuse, prescription drug abuse Family history: hypertension Medications and Allergies Allergies Allergy/AdvReac Type Severity Reaction Status Date / Time promethazine Allergy Unknown Verified 08/13/21 08:07 Home Medications Medication Instructions Recorded Confirmed Last Taken Type HYDROcodone/APAP 5-325 [[place]man 1 - 2 each PO Q6HR PRN #10 tablet 05/22/18 08/15/21 Unknown Rx 5/325] Ibuprofen [Motrin 800 MG tab] 800 mg PO Q8HR PRN #20 tablet 05/22/18 08/15/21 Unknown Rx Active Meds: Active Medications Acetaminophen (Acetaminophen 325 Mg Tab) 650 mg PO Q4H PRN PRN Reason: Pain MILD(1-3)/Fever >100.5/PERALTA Albuterol (Albuterol 2.5 Mg/3 Ml Nebu) 2.5 mg IH Q4HRT PRN PRN Reason: Shortness Of Breath Hydromorphone HCl (Hydromorphone 1 Mg/1 Ml Inj) 0.5 mg IV Q3H PRN PRN Reason: Pain , Severe (7-10) Last Admin: 08/15/21 10:49 Dose: 0.5 mg Sodium Chloride (Nacl 0.9% 1000 Ml) 1,000 mls @ 42 mls/hr IV DIRECT [facility] Last Admin: 08/16/21 07:27 Dose: 42 mls/hr Ondansetron HCl (Ondansetron 4 Mg/2 Ml Inj) 4 mg IV Q8H PRN PRN Reason: Nausea And Vomiting Oxycodone/Acetaminophen (Oxycodone /Acetaminophen 5-325mg Tab) 1 tab PO Q6H PRN PRN Reason: Pain, Moderate (4-6) Sodium Chloride (Sodium Chloride 0.9% 10 Ml Flush Syringe) 10 ml IV BID [facility] Last Admin: 08/16/21 10:04 Dose: 10 ml Sodium Chloride (Sodium Chloride 0.9% 10 Ml Flush Syringe) 10 ml IV PRN PRN PRN Reason: LINE FLUSH Review of Systems Cardiovascular: no chest pain, no orthopnea, no palpitations, no rapid/irregular heart beat, no edema, no syncope, no lightheadedness, no shortness of breath Physical Examination Vital Signs Pulse Resp BP Pulse Ox 70 18 160/80 98 08/13/21 08:04 08/13/21 08:04 08/13/21 08:04 08/13/21 08:04 General appearance: no acute distress HEENT: Positive: PERRL Neck: Positive: neck supple Cardiac: Positive: Reg Rate and Rhythm Lungs: Positive: Decreased Breath Sounds Neuro: Positive: Grossly Intact Abdomen: Positive: Soft Female genitourinary: deferred Skin: Positive: Clear Extremities: Absent: edema Results 08/14/21 04:14 08/14/21 04:14 Assessment and Plan - Patient Problems (1) Fall Current Visit: Yes Status: Acute Plan to address problem: Patient suffered a fall at home, states that she lost her footing, denies any prodrome of lightheadedness or syncope associated with her fall. History of pacemaker implant in situ for which she follows up regularly with her outpatient assembler knife. We will continue telemetry monitoring, and order pacemaker interrogation otherwise conservative cardiac management.
[2021-08-16] MEDS: HYDROmorphone 1 MG/1 ML INJ IV PRN (12:15)
[2021-08-17] MEDS: SODIUM CHLORIDE 0.9% 1000 ML 1,000 ML IV SCH (05:50)
--- NOTE | 2021-08-17 08:29 | Progress Note ---
Assessment and Plan Assessment and plan: --s/p Fall Fall precautions, PT OT rehab Supportive care --Sacral fracture Current Visit: Yes Status: Acute Orthopedic surgery service evaluated the patient, no indication for any surgical procedure, Recommend pain management , physical therapy , ambulate as tolerated and supportive care . DC planning possible placement subacute rehab versus SNF, Per case management -- Vascular dementia Current Visit: Yes Status: Acute Verbal prompting , supportive care --Cerebral atherosclerosis Current Visit: Yes Status: Acute Risk factor reduction therapy, antiplatelet therapy as clinically indicated. --Hypertension Current Visit: Yes Status: Acute Monitor blood pressure every shift, continue medical management --History of coronary artery disease Current Visit: Yes Status: Acute Risk factor reduction therapy, supportive care. Continue current medications --General debility Current Visit: Yes Status: Acute Physical therapy , follow evaluation recommendation PT OT, subacute versus SNF placement when stable --Fracture of right pubis Current Visit: Yes Status: Acute Supportive care, pain control, orthopedic surgery team consulted. Further care and evaluation as per orthopedic surgery team. --Nicotine dependence Current Visit: Yes Status: Acute Smoking cessation counseling, supportive care, Nicotine patch as needed, behavior change counseling, +15 minutes. -- DVT prophylaxis Current Visit: Yes Status: Acute SCD bilateral lower extremities while in bed --Advance care planning Current Visit: Yes Status: Acute Disease education done, care plan discussed, diagnoses discussed, prognosis discussed, patient is full code. Patient acknowledges understanding and agreement with care plan, +30 minutes. Follow Ortho evaluation recommendations Follow PT evaluation recommendations Follow clinically DC planning per case management Placement to SNF versus subacute rehab versus home with home health When medically stable Closely monitor the patient and adjust the management as needed Plan of care reviewed with the patient and her nurse As well as the case management Hospitalist Physical - Constitutional Vitals: Temp Pulse Resp BP Pulse Ox 97.9 F 71 19 123/54 95 08/17/21 05:53 08/17/21 05:53 08/17/21 05:53 08/17/21 05:53 08/17/21 05:53 General appearance: Present: mild distress (Due to pain), well-nourished, other (Elderly and frail) Results - Labs CBC & Chem 7: 08/14/21 04:14 08/14/21 04:14 Labs: Laboratory Last Values WBC 6.5 K/mm3 (4.5-11.0) 08/14/21 04:14 RBC 3.63 M/mm3 (3.65-5.03) L 08/14/21 04:14 Hgb 11.9 gm/dl (10.1-14.3) 08/14/21 04:14 Hct 35.2 % (30.3-42.9) D 08/14/21 04:14 MCV 97 fl (79-97) 08/14/21 04:14 MCH 33 pg (28-32) H 08/14/21 04:14 MCHC 34 % (30-34) 08/14/21 04:14 RDW 13.8 % (13.2-15.2) 08/14/21 04:14 Plt Count 73 K/mm3 (140-440) L 08/14/21 04:14 Lymph % (Auto) 19.6 % (13.4-35.0) 08/14/21 04:14 [place] % (Auto) 4.6 % (0.0-7.3) 08/14/21 04:14 Eos % (Auto) 2.5 % (0.0-4.3) 08/14/21 04:14 Baso % (Auto) 0.2 % (0.0-1.8) 08/14/21 04:14 Lymph # (Auto) 1.3 K/mm3 (1.2-5.4) 08/14/21 04:14 [place] # (Auto) 0.3 K/mm3 (0.0-0.8) 08/14/21 04:14 Eos # (Auto) 0.2 K/mm3 (0.0-0.4) 08/14/21 04:14 Baso # (Auto) 0.0 K/mm3 (0.0-0.1) 08/14/21 04:14 Seg Neutrophils % 73.1 % (40.0-70.0) H 08/14/21 04:14 Seg Neutrophils # 4.7 K/mm3 (1.8-7.7) 08/14/21 04:14 Sodium 139 mmol/L (137-145) 08/14/21 04:14 Potassium 4.4 mmol/L (3.6-5.0) 08/14/21 04:14 Chloride 104.0 mmol/L (98-107) 08/14/21 04:14 Carbon Dioxide 25 mmol/L (22-30) 08/14/21 04:14 Anion Gap 14 mmol/L 08/14/21 04:14 BUN 22 mg/dL (7-17) H 08/14/21 04:14 Creatinine 0.9 mg/dL (0.6-1.2) 08/14/21 04:14 Estimated GFR 59 ml/min 08/14/21 04:14 BUN/Creatinine Ratio 24 % 08/14/21 04:14 Glucose 117 mg/dL (65-100) H 08/14/21 04:14 Calcium 9.3 mg/dL (8.4-10.2) 08/14/21 04:14 Urine Color Yellow (Yellow) 08/15/21 02:45 Urine Turbidity Clear (Clear) 08/15/21 02:45 Urine pH 5.0 (5.0-7.0) 08/15/21 02:45 Ur Specific [place] 1.019 (1.003-1.030) 08/15/21 02:45 Urine Protein <15 mg/dl mg/dL (Negative) 08/15/21 02:45 Urine Glucose (UA) Neg mg/dL (Negative) 08/15/21 02:45 Urine Ketones Neg mg/dL (Negative) 08/15/21 02:45 Urine Blood Sm (Negative) 08/15/21 02:45 Urine Nitrite Neg (Negative) 08/15/21 02:45 Urine Bilirubin Neg (Negative) 08/15/21 02:45 Urine Urobilinogen < 2.0 mg/dL (<2.0) 08/15/21 02:45 Ur Leukocyte Esterase Neg (Negative) 08/15/21 02:45 Urine WBC (Auto) < 1.0 /HPF (0.0-6.0) 08/15/21 02:45 Urine RBC (Auto) < 1.0 /HPF (0.0-6.0) 08/15/21 02:45 U Epithel Cells (Auto) 2.0 /HPF (0-13.0) 08/15/21 02:45 Urine Mucus Few /HPF 08/15/21 02:45 Gavin/IV: Voiding Method External Female Catheter Active Medications - Current Medications Current Medications: Generic Name Dose Route Start Last Admin Trade Name Freq PRN Reason Stop Dose Admin Acetaminophen 650 mg 08/13/21 16:31 Acetaminophen 325 Mg Tab PO Q4H PRN Pain MILD(1-3)/Fever >100.5/PERALTA Albuterol 2.5 mg 08/13/21 16:31 Albuterol 2.5 Mg/3 Ml Nebu IH Q4HRT PRN Shortness Of Breath Hydromorphone HCl 0.5 mg 08/13/21 16:31 08/16/21 12:15 Hydromorphone 1 Mg/1 Ml Inj IV 0.5 mg Q3H PRN Administration Pain , Severe (7-10) Sodium Chloride 1,000 mls @ 42 mls/hr 08/13/21 16:45 08/17/21 05:50 Nacl 0.9% 1000 Ml IV 42 mls/hr DIRECT PARMINDER Administration Ondansetron HCl 4 mg 08/13/21 16:31 Ondansetron 4 Mg/2 Ml Inj IV Q8H PRN Nausea And Vomiting Oxycodone/Acetaminophen 1 tab 08/13/21 16:31 Oxycodone /Acetaminophen 5-325mg Tab PO Q6H PRN Pain, Moderate (4-6) Sodium Chloride 10 ml 08/13/21 22:00 08/16/21 21:56 Sodium Chloride 0.9% 10 Ml Flush Syringe IV 10 ml BID PARMINDER Administration Sodium Chloride 10 ml 08/13/21 16:31 Sodium Chloride 0.9% 10 Ml Flush Syringe IV PRN PRN LINE FLUSH
--- NOTE | 2021-08-17 12:40 | Discharge Summary ---
Providers - Providers Date of Admission: 08/13/21 18:17 Date of discharge: 08/17/21 Attending physician: MORALES CRAIN 08/13/21 12:27 Consult to Physician [CONS] Urgent Comment: Consulting Provider: KORI SINGH Physician Instructions: Reason For Exam: fall, sacral fracture, pubic ramus fracture 08/13/21 16:33 Consult to Case Management [CONS] Routine Services Needed at Discharge: Other Notified:: in am Additional Physician Instructions: Assistance with D/C Planning placement/rehab Physical Therapy Evaluation and Treat [CONS] Routine Comment: Reason For Exam: sacral fracture 08/14/21 13:07 Consult to Cardiology [CONS] Routine Consulting Provider: BRIDGET SPAIN Reason For Exam: SYNCOPE Primary care physician: CASH REGISTER BALANCER Hospitalization Reason for admission: History of fall/sacrum and pelvic fracture Condition: Stable Pertinent studies: Hip x-ray: no acute abnormality lumbar x-ray spine; mild bony degenerative changes in the lumbar spine CT lumbar spine without contrast; Sacral fractures no signs of discitis or epidural fluid collection degenerative changes as described above Patix-ray pelvis; nondisplaced fracture of the right inferior pubic ramus CT head without contrast; no focal mass hemorrhage hydrocephalus or acute large territorial infarct no abnormality noted Hospital course: 86-year-old frail elderly female patient with significant past medical history of vascular dementia hypertension coronary artery disease 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 Patient was evaluated in the emergency room had extensive work-up with multiple imaging studies as mentioned above and patient sustained, pelvic fracture nondisplaced right inferior pubic ramus as well as sacral fractures. Patient was evaluated by orthopedic surgeon, recommended no surgical intervention, advised pain management physical therapy occupational therapy and ambulation as tolerated. Patient was managed with pain medications and supportive care PT OT has evaluated the patient, and recommended ambulation as tolerated as well as subacute rehab. Today patient is comfortable still has some pain cachectic, frail Vital signs stable, Cleared by consultants for discharge and follow-up with them per schedule Patient is hemodynamically and clinically stable at discharge Full CODE STATUS Final diagnosis --s/p Fall Fall precautions, PT OT rehab Supportive care --Sacral fracture Current Visit: Yes Status: Acute Orthopedic surgery service evaluated the patient, no indication for any surgical procedure, Recommend pain management , physical therapy , ambulate as tolerated and supportive care . DC planning possible placement subacute rehab versus SNF, Per case management -- Vascular dementia Current Visit: Yes Status: Acute Verbal prompting , supportive care --Cerebral atherosclerosis Current Visit: Yes Status: Acute Risk factor reduction therapy, antiplatelet therapy as clinically indicated. --Hypertension Current Visit: Yes Status: Acute Monitor blood pressure every shift, continue medical management --History of coronary artery disease Current Visit: Yes Status: Acute Risk factor reduction therapy, supportive care. Continue current medications --General debility Current Visit: Yes Status: Acute Physical therapy , follow evaluation recommendation PT OT, subacute versus SNF placement when stable --Fracture of right pubis Current Visit: Yes Status: Acute Supportive care, pain control, orthopedic surgery team consulted. Further care and evaluation as per orthopedic surgery team. --Nicotine dependence Current Visit: Yes Status: Acute Smoking cessation counseling, supportive care, Nicotine patch as needed, behavior change counseling, +15 minutes. -- DVT prophylaxis Current Visit: Yes Status: Acute SCD bilateral lower extremities while in bed --Advance care planning Current Visit: Yes Status: Acute Disease education done, care plan discussed, diagnoses discussed, prognosis discussed, patient is full code. Patient acknowledges understanding and agreement with care plan, +30 minutes. Stable at discharge Disposition: 03 RETIREMENT [facility] Final Discharge Diagnosis (Prints w/discharge instructions): Status post fall. Sacral fracture. Fracture of right pubis. Vascular dementia. Cerebral atherosclerosis. Hypertension. History of coronary artery disease. General debility. Nicotine dependence Time spent for discharge: 40 minutes Core Measure Documentation - Palliative Care Palliative Care/ Comfort Measures: Not Applicable - Core Measures Any of the following diagnoses?: none Exam - Constitutional Vitals: Temp Pulse Resp BP Pulse Ox 97.9 F 71 19 123/54 96 08/17/21 05:53 08/17/21 05:53 08/17/21 05:53 08/17/21 05:53 08/17/21 10:00 General appearance: Present: mild distress, well-nourished, other (Elderly and frail) - EENT Eyes: Present: PERRL, EOM intact - Neck Neck: Present: supple, normal ROM - Respiratory Respiratory effort: normal Respiratory: bilateral: diminished, negative: rales, rhonchi, wheezing - Cardiovascular Rhythm: regular Heart Sounds: Present: S1 & S2 - Extremities Extremities: no ischemia, No edema - Abdominal General gastrointestinal: Present: soft, non-tender, non-distended, normal bowel sounds - Integumentary Integumentary: Present: clear, warm Plan Activity: advance as tolerated, fall precautions Diet: regular Special Instructions: physical therapy, occupational therapy Additional Instructions: If you if you have worsening symptoms contact MD or go to the nearest emergency room. Fall precautions. Aspiration precautions. Smoking cessation counseling done advised to quit tobacco use. Use nicotine patch as needed. Advised to follow primary care physician, orthopedic surgeon per schedule Follow up with: PRIMARY CAREMD [Primary Care Provider] - 3-5 Days KORI SINGH MD [Staff Physician] - 7 Days Prescriptions: Nicotine [Habitrol] 21 mg TD DAILY #30 patch Ibuprofen [Motrin 800 MG tab] 800 mg PO Q8HR PRN #20 tablet PRN Reason: Pain, Moderate (4-6) HYDROcodone/APAP 5-325 [[place] 5-325 mg TAB] 1 - 2 each PO Q8H PRN #21 tablet PRN Reason: Pain Pantoprazole [Protonix TAB] 20 mg PO QDAY #30 tablet.
[2021-08-17 13:14] VITALS: BP 136/59
--- NOTE | 2021-08-17 13:44 | Progress Note ---
Assessment and Plan - Patient Problems (1) Fall Current Visit: Yes Status: Acute Plan to address problem: Patient suffered a fall at home, states that she lost her footing, denies any prodrome of lightheadedness or syncope associated with her fall. History of pac emaker implant in situ for which she follows up regularly with her outpatient traffic investigator. Pacemaker interrogation on this presentation was negative, normal pacemaker function. We will continue telemetry monitoring, stable and asymptomatic cardiac status. Subjective Date of service: 08/17/21 Principal diagnosis: Pelvic fracture, ground level fall Interval history: Patient is comfortable, no cardiac complaints, no new cardiac events reported. Pacemaker interrogation today was negative, normal pacemaker function. Objective Vital Signs Temp Pulse Resp Resp Resp Resp BP 08/17/21 12:01 98.1 F 74 18 136/59 08/17/21 11:00 08/17/21 10:00 08/17/21 05:53 97.9 F 71 19 123/54 08/16/21 22:15 98.0 F 69 19 152/66 08/16/21 22:00 17 17 17 17 08/16/21 16:28 99.1 F 84 18 167/85 Pulse Ox 08/17/21 12:01 96 08/17/21 11:00 98 08/17/21 10:00 96 08/17/21 05:53 95 08/16/21 22:15 93 08/16/21 22:00 93 08/16/21 16:28 95 - Physical Examination General: No Apparent Distress HEENT: Positive: PERRL Neck: Positive: neck supple Cardiac: Positive: Irregularly Regular Lungs: Positive: Decreased Breath Sounds Neuro: Positive: Grossly Intact Abdomen: Positive: Soft Skin: Positive: Clear Extremities: Absent: edema
--- NOTE | 2021-08-18 10:16 | Electrocardiograph Report ---
[facility] Test Date: 2021-08-16 Test Time: 13:13:52 Pat Name: LAURENCE ZALDIVAR Department: Room: A3 1 Gender: F Acid Pumper: KURT : 1935 Requested By: MORALES CRAIN Order Number: [id number] Reading MD: Caleb Morales Measurements Intervals [place] Rate: 69 P: MD: 163 QRS: -8 QRSD: 86 T: 17 QT: 392 QTc: 421 Interpretive Statements Atrial-paced complexes No previous ECG available for comparison Electronically Signed On 08-18-2021 10:16:21 EDT by Caleb Morales
== END 2021-08-17 14:30 | DRG 552 ==
LOC: ED 08:00 → 3A 18:17
PROVIDERS: ADMIT Internal Medicine; ATTEND Internal Medicine
PROC: 4B02XSZ Measurement of Cardiac Pacemaker, External Approach (ICD-10-PCS; principal; 2021-08-17)
DX: S32.10XA Unspecified fracture of sacrum, initial encounter for closed fracture (principal); S32.591A Other specified fracture of right pubis, initial encounter for closed fracture; F17.213 Nicotine dependence, cigarettes, with withdrawal; I25.10 Atherosclerotic heart disease of native coronary artery without angina pectoris; Z20.822 Contact with and (suspected) exposure to COVID-19; I10 Essential (primary) hypertension; I25.2 Old myocardial infarction; Z95.0 Presence of cardiac pacemaker; W18.39XA Other fall on same level, initial encounter; Y93.89 Activity, other specified; Y92.89 Other specified places as the place of occurrence of the external cause; Y99.8 Other external cause status; Z90.710 Acquired absence of both cervix and uterus; Z88.8 Allergy status to other drugs, medicaments and biological substances; F01.50 Vascular dementia, unspecified severity, without behavioral disturbance, psychotic disturbance, mood disturbance, and anxiety; I67.2 Cerebral atherosclerosis; I25.5 Ischemic cardiomyopathy; Z82.49 Family history of ischemic heart disease and other diseases of the circulatory system
CPT/HCPCS: 36415; 70450; 72100; 72131; 72192; 80048; 81001; 85025; 93005; 94760; G0378; Q0162; J1170; J2270; J2405; J3010; J7030; U0003